=== PATIENT | male | born 1935 | race Caucasian/White ===

== ENCOUNTER 2023-04-11 10:45 | Emergency (ER) | payer MEDICARE, BC ==
[2023-04-11 11:09] LABS: BASOPHILS ABSOLUTE AUTO 0.02 K/uL (0.00-0.20); BASOPHILS PERCENT AUTO 0.3 % (0.0-2.0); EOSINOPHILS ABSOLUTE AUTO 0.19 K/uL (0.00-0.50); EOSINOPHILS PERCENT AUTO 2.9 % (0.0-5.0); HEMATOCRIT 45.5 % (39.0-49.0); HEMOGLOBIN 14.9 g/dL (13.1-16.8); LYMPHOCYTES ABSOLUTE AUTO 1.16 K/uL (0.50-3.50); LYMPHOCYTES PERCENT AUTO 17.8 % (10.0-50.0); MEAN CORPUSCULAR HEMOGLOBIN 32.4 pg (28.2-33.3); MEAN CORPUSCULAR HGB CONC 32.7 g/dL (31.7-36.0); MEAN CORPUSCULAR VOLUME 98.9 fL (84.0-98.0); MONOCYTES ABSOLUTE AUTO 1.16 K/uL (0.00-1.00); MONOCYTES PERCENT AUTO 17.8 % (2.0-14.0); NEUTROPHILS PERCENT AUTO 61.2 % (45.0-80.0); PLATELET COUNT,PLT 168 K/uL (150-350); RED CELL DISTRIBUTION WIDTH 14.3 % (11.2-14.1); WHITE BLOOD CELL COUNT,WBC 6.5 K/uL (4.0-10.2)
[2023-04-11 11:24] LABS: ALANINE AMINOTRANSFERASE,ALT 34 U/L (12-78); ALBUMIN 3.4 g/dL (3.4-5.0); ALKALINE PHOSPHATASE 113 IU/L (46-116); ANION GAP 8.4 meq/L (7-15); ASPARTATE AMNIOTRANSFERASE,AST 26 U/L (15-37); BILIRUBIN TOTAL 1.1 mg/dL (0.2-1.0); BLOOD UREA NITROGEN,BUN 24 mg/dL (7-18); CALCIUM 8.6 mg/dL (8.5-10.1); CARBON DIOXIDE,CO2 27.6 mmol/L (21.0-32.0); CHLORIDE,CL 103 mmol/L (98-107); CREATININE 1.47 mg/dL (0.51-1.17); ESTIMATED GFR 46 mL/min (>=60); GLUCOSE RANDOM 108 mg/dL (70-99); PROTEIN TOTAL,TP 6.7 g/dL (6.4-8.2); SODIUM,NA 139 mmol/L (136-145)
[2023-04-11 11:34] LABS: INR 1.5
[2023-04-11 11:46] LABS: CORONAVIRUS COVID-19 NAA NEGATIVE (NEGATIVE); INFLUENZA A NAA NEGATIVE (NEGATIVE); INFLUENZA B NAA NEGATIVE (NEGATIVE); RESPIRATORY SYNCYTIAL VIR NAA NEGATIVE (NEGATIVE)
[2023-04-11] MEDS ORDERED: Take Home: Azithromycin 250 MG 5 Day, 6 Tab Pack PO ONE (11:58)
[2023-04-11] MEDS ORDERED: Take Home: predniSONE 20 MG, 4 Tab Pack PO ONE (11:59)
== END 2023-04-11 12:20 | disposition home or self-care (01) ==
LOC: LL.ED 10:45 → SUPCPDRO 10:45 → LL.ED 12:20
DX: J98.9 Respiratory disorder, unspecified (principal); E78.00 Pure hypercholesterolemia, unspecified; I48.91 Unspecified atrial fibrillation; J44.9 Chronic obstructive pulmonary disease, unspecified; Z87.891 Personal history of nicotine dependence; Z79.01 Long term (current) use of anticoagulants; Z79.899 Other long term (current) drug therapy; Z88.2 Allergy status to sulfonamides
CPT/HCPCS: 0241U; 36415; 71046; 80053; 85025; 85610; 99284; 99285; A9270-GY

== ENCOUNTER 2024-07-15 11:06 | Emergency (ER) | payer MEDICARE ==
[2024-07-15] MEDS: Albuterol/Ipratropium 3.0-0.5 MG/3 ML Neb Soln NEB ONE ×3 (11:27→11:43)
[2024-07-15] MEDS: methylPREDNISolone Sodium Succinate 125 MG/2 ML SDV IVPUSH ONE (11:36)
[2024-07-15 11:38] LABS: BASOPHILS ABSOLUTE AUTO 0.02 K/uL (0.00-0.20); BASOPHILS PERCENT AUTO 0.2 % (0.0-2.0); EOSINOPHILS ABSOLUTE AUTO 0.07 K/uL (0.00-0.50); EOSINOPHILS PERCENT AUTO 0.6 % (0.0-5.0); HEMATOCRIT 45.2 % (39.0-49.0); HEMOGLOBIN 14.8 g/dL (13.1-16.8); IMMATURE GRAN ABSOLUTE AUTO 0.03 10^3/uL (0.00-0.04); IMMATURE GRAN PERCENT AUTO 0.2 % (0.0-0.4); LYMPHOCYTES ABSOLUTE AUTO 1.28 K/uL (0.50-3.50); LYMPHOCYTES PERCENT AUTO 10.2 % (10.0-50.0); MEAN CORPUSCULAR HEMOGLOBIN 32.7 pg (28.2-33.3); MEAN CORPUSCULAR HGB CONC 32.7 g/dL (31.7-36.0); MONOCYTES ABSOLUTE AUTO 1.54 K/uL (0.00-1.00); MONOCYTES PERCENT AUTO 12.2 % (2.0-14.0); NEUTROPHILS ABSOLUTE AUTO 9.65 K/uL (1.40-7.00); NEUTROPHILS PERCENT AUTO 76.6 % (45.0-80.0); PLATELET COUNT,PLT 226 K/uL (150-350); RED BLOOD CELL COUNT 4.52 M/uL (4.33-5.41); RED CELL DISTRIBUTION WIDTH 13.9 % (11.2-14.1); WHITE BLOOD CELL COUNT,WBC 12.6 K/uL (4.0-10.2)
[2024-07-15 11:50] LABS: O2 DELIVERY DEVICE NASAL CANNULA; O2 SATURATION VENOUS 44 %; PCO2 VENOUS 54 mmHG (41-51); PH,VENOUS 7.37 (7.31-7.41); PO2 VENOUS 26 mmHG
[2024-07-15 11:51] LABS: BASE EXCESS VENOUS 5 mmol/L ((-2)-3); BICARBONATE,VENOUS 32 mmol/L (23-28)
[2024-07-15 12:09] LABS: ALANINE AMINOTRANSFERASE,ALT 28 U/L (12-78); ALBUMIN 2.8 g/dL (3.4-5.0); ALKALINE PHOSPHATASE 121 IU/L (46-116); ANION GAP 6.5 meq/L (7-15); ASPARTATE AMNIOTRANSFERASE,AST 22 U/L (15-37); BILIRUBIN TOTAL 1.1 mg/dL (0.2-1.0); BLOOD UREA NITROGEN,BUN 22 mg/dL (7-18); CALCIUM 9.2 mg/dL (8.5-10.1); CHLORIDE,CL 105 mmol/L (98-107); CREATININE 1.34 mg/dL (0.51-1.17); ESTIMATED GFR 51 mL/min (>=60); GLUCOSE RANDOM 115 mg/dL (70-99); POTASSIUM,K 4.5 mmol/L (3.5-5.1); PRO B-TYPE NATRIUR PEPT,BNPPRO 2510 pg/mL (0-125); PROTEIN TOTAL,TP 6.7 g/dL (6.4-8.2); SODIUM,NA 141 mmol/L (136-145)
[2024-07-15] MEDS: Azithromycin 500 MG in Sodium Chloride 0.9% 250 ML IV ONE (12:41)
[2024-07-15] MEDS: Furosemide 40 MG/4 ML VIAL IVPUSH ONE (12:41)
[2024-07-15] MEDS: cefTRIAXone 1 GM in Sodium Chloride 0.9% 100 ML IV ONE (12:41)
[2024-07-15] MEDS: Diltiazem 25 MG/5 ML SDV IVPUSH ONE (12:41)
[2024-07-15] MEDS: Sodium Chloride 0.9% 10 ML Syringe FLUSH PRN (12:42)
[2024-07-15 13:21] LABS: APPEARANCE,URINE CLEAR; BILIRUBIN,URINE NEGATIVE (NEGATIVE); COLOR,URINE DARK YELLOW; GLUCOSE,URINE NEGATIVE (NEGATIVE); KETONES,URINE NEGATIVE (NEGATIVE); LEUKOCYTE ESTERASE,URINE NEGATIVE (NEGATIVE); NITRITE,URINE NEGATIVE (NEGATIVE); OCCULT BLOOD,URINE NEGATIVE (NEGATIVE); PROTEIN,URINE NEGATIVE (NEGATIVE)
[2024-07-15] MEDS: Diltiazem IR 60 MG Tab PO ONE (14:53)
== END 2024-07-15 14:55 ==
LOC: LL.ED 11:06
DX: I48.91 Unspecified atrial fibrillation (principal); E78.00 Pure hypercholesterolemia, unspecified; J44.9 Chronic obstructive pulmonary disease, unspecified; Z87.891 Personal history of nicotine dependence; Z79.899 Other long term (current) drug therapy; Z79.01 Long term (current) use of anticoagulants; Z88.2 Allergy status to sulfonamides
CPT/HCPCS: 36415; 71046; 80053; 81003; 82803; 83605; 83880; 84484; 85025; 85379; 87428-QW; 93005; 94640; 96365; 96367; 96375; 99285-25; A9270-GY; J0456; J0696; J1940; J2919; J3490

== ENCOUNTER 2024-11-27 10:55 | Emergency (ER) | payer MEDICARE ==
[2024-11-27] MEDS: Diltiazem 25 MG/5 ML SDV IVPUSH ONE ×2 (11:04→11:27)
[2024-11-27] MEDS: Sodium Chloride 0.9% 10 ML Syringe FLUSH PRN (11:11)
[2024-11-27] MEDS: Diltiazem 25 MG/5 ML SDV ONE (11:12)
[2024-11-27 11:15] LABS: BASOPHILS ABSOLUTE AUTO 0.02 K/uL (0.00-0.20); BASOPHILS PERCENT AUTO 0.1 % (0.0-2.0); EOSINOPHILS ABSOLUTE AUTO 0.03 K/uL (0.00-0.50); EOSINOPHILS PERCENT AUTO 0.2 % (0.0-5.0); IMMATURE GRAN ABSOLUTE AUTO 0.03 10^3/uL (0.00-0.04); IMMATURE GRAN PERCENT AUTO 0.2 % (0.0-0.4); LYMPHOCYTES ABSOLUTE AUTO 1.15 K/uL (0.50-3.50); LYMPHOCYTES PERCENT AUTO 7.4 % (10.0-50.0); MONOCYTES ABSOLUTE AUTO 1.45 K/uL (0.00-1.00); MONOCYTES PERCENT AUTO 9.3 % (2.0-14.0); NEUTROPHILS ABSOLUTE AUTO 12.87 K/uL (1.40-7.00); NEUTROPHILS PERCENT AUTO 82.8 % (45.0-80.0); PLATELET COUNT,PLT 189 K/uL (150-350); RED BLOOD CELL COUNT 4.42 M/uL (4.33-5.41); RED CELL DISTRIBUTION WIDTH 13.4 % (11.2-14.1); WHITE BLOOD CELL COUNT,WBC 15.6 K/uL (4.0-10.2)
[2024-11-27 11:26] LABS: ALANINE AMINOTRANSFERASE,ALT 33 U/L (12-78); ASPARTATE AMNIOTRANSFERASE,AST 31 U/L (15-37); BILIRUBIN TOTAL 1.2 mg/dL (0.2-1.0); BLOOD UREA NITROGEN,BUN 22 mg/dL (7-18); CARBON DIOXIDE,CO2 29.6 mmol/L (21.0-32.0); CHLORIDE,CL 102 mmol/L (98-107); CREATININE 1.17 mg/dL (0.51-1.17); GLUCOSE RANDOM 112 mg/dL (70-99); POTASSIUM,K 3.8 mmol/L (3.5-5.1); PROTEIN TOTAL,TP 6.7 g/dL (6.4-8.2); SODIUM,NA 140 mmol/L (136-145)
[2024-11-27 11:29] LABS: ESTIMATED GFR 60 mL/min (>=60)
[2024-11-27 11:46] LABS: INR 1.2 (0.9-1.1)
[2024-11-27] MEDS: Magnesium Sulfat/D5W 1GM/100ML 1 GM in Premix Bag 1 BAG IV ONE (12:17)
== END 2024-11-27 15:41 ==
LOC: LL.ED 10:55
DX: I48.91 Unspecified atrial fibrillation (principal); E78.00 Pure hypercholesterolemia, unspecified; J44.9 Chronic obstructive pulmonary disease, unspecified; Z88.2 Allergy status to sulfonamides; Z79.899 Other long term (current) drug therapy; Z79.01 Long term (current) use of anticoagulants; Z90.49 Acquired absence of other specified parts of digestive tract
CPT/HCPCS: 36415; 71046; 80053; 83735; 83880; 84484; 85025; 85610; 93005; 94640; 94761; 96365; 96366; 96368; 96376; 99285-25; A9270-GY; J3475; J3490; J7040

== ENCOUNTER 2025-04-10 09:54 | Emergency (ER) | payer MEDICARE ==
[2025-04-10 10:43] LABS: BASOPHILS ABSOLUTE AUTO 0.03 K/uL (0.00-0.20); BASOPHILS PERCENT AUTO 0.3 % (0.0-2.0); EOSINOPHILS ABSOLUTE AUTO 0.03 K/uL (0.00-0.50); EOSINOPHILS PERCENT AUTO 0.3 % (0.0-5.0); IMMATURE GRAN ABSOLUTE AUTO 0.00 10^3/uL (0.00-0.04); IMMATURE GRAN PERCENT AUTO 0.0 % (0.0-0.4); LYMPHOCYTES ABSOLUTE AUTO 0.96 K/uL (0.50-3.50); LYMPHOCYTES PERCENT AUTO 8.9 % (10.0-50.0); MONOCYTES ABSOLUTE AUTO 1.54 K/uL (0.00-1.00); MONOCYTES PERCENT AUTO 14.3 % (2.0-14.0); NEUTROPHILS ABSOLUTE AUTO 8.20 K/uL (1.40-7.00); NEUTROPHILS PERCENT AUTO 76.2 % (45.0-80.0); PLATELET COUNT,PLT 170 K/uL (150-350); RED BLOOD CELL COUNT 3.75 M/uL (4.33-5.41); RED CELL DISTRIBUTION WIDTH 13.5 % (11.2-14.1); WHITE BLOOD CELL COUNT,WBC 10.8 K/uL (4.0-10.2)
[2025-04-10 11:07] LABS: ALANINE AMINOTRANSFERASE,ALT 31 U/L (12-78); ASPARTATE AMNIOTRANSFERASE,AST 25 U/L (15-37); BILIRUBIN TOTAL 1.1 mg/dL (0.2-1.0); BLOOD UREA NITROGEN,BUN 17 mg/dL (7-18); CARBON DIOXIDE,CO2 29.3 mmol/L (21.0-32.0); CHLORIDE,CL 103 mmol/L (98-107); CREATININE 0.90 mg/dL (0.51-1.17); GLUCOSE RANDOM 99 mg/dL (70-99); POTASSIUM,K 4.0 mmol/L (3.5-5.1); PROTEIN TOTAL,TP 6.1 g/dL (6.4-8.2); SODIUM,NA 141 mmol/L (136-145)
[2025-04-10 11:09] LABS: ESTIMATED GFR 82 mL/min (>=60)
[2025-04-10 11:15] LABS: LACTIC ACID 1.2 mmol/L (0.4-2.0)
[2025-04-10 11:17] LABS: APPEARANCE,URINE CLEAR; GLUCOSE,URINE NEGATIVE (NEGATIVE); OCCULT BLOOD,URINE NEGATIVE (NEGATIVE)
[2025-04-10 11:22] LABS: HCO3 VENOUS,POC 26 mmol/L (23-28); O2 SATURATION VENOUS,POC 99 %; PCO2 VENOUS,POC 32 mmHg (41-51); PH VENOUS,POC 7.52 (7.31-7.41); PO2 VENOUS,POC 113 mmHg
[2025-04-10] MEDS: methylPREDNISolone Sodium Succinate 125 MG/2 ML SDV IV ONE (11:24)
[2025-04-10] MEDS: Sodium Chloride 0.9% 10 ML Syringe FLUSH PRN (11:25)
[2025-04-10 11:49] LABS: INR 1.4 (0.9-1.1); PTT,PARTIAL THROMBOPLSTIN TIME 29.9 SEC (23.8-34.4)
== END 2025-04-10 12:00 | disposition home or self-care (01) ==
LOC: SUPCPDRO 09:54 → LL.ED 09:54
DX: J44.1 Chronic obstructive pulmonary disease with (acute) exacerbation (principal); I48.91 Unspecified atrial fibrillation; E78.00 Pure hypercholesterolemia, unspecified; Z88.2 Allergy status to sulfonamides; Z79.899 Other long term (current) drug therapy; Z90.49 Acquired absence of other specified parts of digestive tract; Z87.891 Personal history of nicotine dependence
CPT/HCPCS: 36415; 71045; 80053; 81001; 82803; 83605; 85025; 85610; 85730; 86140; 87040; 87428-QW; 96374; 96375; 99284; 99284-25; J0696; J2919